=== PATIENT | female | born 1965 | race Caucasian/White ===

== ENCOUNTER 2017-01-20 16:55 | Emergency (ER) | payer OTHER ==
[~2017-01-20] VITALS: Ht 162.6 cm; Wt 68.9 kg
[2017-01-20 20:36] VITALS: BP 125/85
== END 2017-01-20 20:36 | disposition home or self-care (01) ==
LOC: ED 16:55
DX: L03.012 Cellulitis of left finger (principal); M25.561 Pain in right knee; J45.909 Unspecified asthma, uncomplicated; Z88.2 Allergy status to sulfonamides

== ENCOUNTER 2017-12-30 17:35 | Emergency (ER) | payer OTHER ==
[~2017-12-30] VITALS: Ht 162.6 cm; Wt 71.7 kg
[2017-12-30 17:42] VITALS: Ht 162.6 cm; Wt 71.7 kg
[2017-12-30 19:14] VITALS: BP 142/79
== END 2017-12-30 19:14 | disposition home or self-care (01) ==
LOC: ED 17:35
DX: S13.4XXA Sprain of ligaments of cervical spine, initial encounter (principal); S53.402A Unspecified sprain of left elbow, initial encounter; S20.212A Contusion of left front wall of thorax, initial encounter; M41.9 Scoliosis, unspecified; J45.909 Unspecified asthma, uncomplicated; Z90.710 Acquired absence of both cervix and uterus; V49.9XXA Car occupant (driver) (passenger) injured in unspecified traffic accident, initial encounter; Y93.84 Activity, sleeping; Y92.89 Other specified places as the place of occurrence of the external cause; Y99.8 Other external cause status

== ENCOUNTER 2018-05-18 12:12 | Emergency (ER) | payer OTHER ==
[~2018-05-18] VITALS: Ht 160 cm; Wt 71.7 kg
[2018-05-18 12:21] VITALS: Ht 160 cm; Wt 71.7 kg
[2018-05-18 14:05] LABS: CALCIUM 8.9 mg/dL (8.5-10.1); CARBON DIOXIDE 31.7 mmol/L (21-32); CHLORIDE SERUM 104 mmol/L (98-107); CREATININE SERUM 0.6 mg/dL (0.6-1.0); GFR1 > 60 mL/min; GLUCOSE SERUM 95 mg/dL (74-106); POTASSIUM SERUM 3.7 mmol/L (3.5-5.1); SODIUM SERUM 139 mmol/L (136-145)
[2018-05-18 14:10] LABS: ALBUMIN 4.3 g/dL (3.4-5.0); ALKALINE PHOSPHATASE 97 U/L (46-116); ALT/SGPT 31 U/L (14-59); AST/SGOT 17 U/L (15-37); BILIRUBIN TOTAL 0.67 mg/dL (0.20-1.00); LIPASE 151 IU/L (73-393)
[2018-05-18 14:13] LABS: BASOPHIL % 0.8 % (0-2); PLATELET COUNT 279 x10^3mcL (130-400); RED CELL DISTRIBUTION WIDTH 12.5 % (11.5-14.5)
[2018-05-18 14:15] LABS: TOTAL PROTEIN, SERUM 8.3 g/dL (6.4-8.2)
[2018-05-18 15:15] VITALS: BP 124/74
== END 2018-05-18 15:15 | disposition home or self-care (01) ==
LOC: ED 12:12
PROVIDERS: Emergency Medicine
DX: N39.0 Urinary tract infection, site not specified (principal); J45.909 Unspecified asthma, uncomplicated; Z90.710 Acquired absence of both cervix and uterus
CPT/HCPCS: 36415; J1885

== ENCOUNTER 2018-10-17 15:56 | Emergency (ER) | payer OTHER ==
[~2018-10-17] VITALS: Ht 160 cm; Wt 71.7 kg
[2018-10-17 16:06] VITALS: Ht 160 cm; Wt 71.7 kg
[2018-10-17 16:38] VITALS: BP 151/72
== END 2018-10-17 17:18 | disposition home or self-care (01) ==
LOC: ED 15:56
DX: L29.9 Pruritus, unspecified (principal); T63.481A Toxic effect of venom of other arthropod, accidental (unintentional), initial encounter; J45.909 Unspecified asthma, uncomplicated; Y92.89 Other specified places as the place of occurrence of the external cause; Z90.710 Acquired absence of both cervix and uterus; Z98.890 Other specified postprocedural states

== ENCOUNTER 2019-05-02 15:35 | Emergency (ER) | payer OTHER ==
[~2019-05-02] VITALS: Ht 160 cm; Wt 68.0 kg
[2019-05-02 15:39] VITALS: Ht 160 cm; Wt 68.0 kg
[2019-05-02 16:25] LABS: BASOPHIL % 0.5 % (0-2); PLATELET COUNT 253 x10^3mcL (130-400); RED CELL DISTRIBUTION WIDTH 12.7 % (11.5-14.5)
[2019-05-02 16:38] LABS: CALCIUM 8.8 mg/dL (8.5-10.1); CARBON DIOXIDE 29.7 mmol/L (21-32); CHLORIDE SERUM 107 mmol/L (98-107); CREATININE SERUM 0.7 mg/dL (0.6-1.0); GFR1 > 60 mL/min; GLUCOSE SERUM 109 mg/dL (74-106); POTASSIUM SERUM 3.8 mmol/L (3.5-5.1); SODIUM SERUM 144 mmol/L (136-145)
[2019-05-02 16:42] LABS: ALBUMIN 4.1 g/dL (3.4-5.0); ALKALINE PHOSPHATASE 87 U/L (46-116); ALT/SGPT 17 U/L (14-59); AST/SGOT 16 U/L (15-37); TOTAL PROTEIN, SERUM 7.1 g/dL (6.4-8.2)
[2019-05-02 16:56] VITALS: BP 123/80
== END 2019-05-02 19:04 | disposition home or self-care (01) ==
LOC: ED 15:35
PROVIDERS: Emergency Medicine
DX: N20.0 Calculus of kidney (principal); J45.909 Unspecified asthma, uncomplicated; Z98.890 Other specified postprocedural states; Z88.2 Allergy status to sulfonamides
CPT/HCPCS: 36415

== ENCOUNTER 2019-05-05 12:15 | Emergency (ER) | payer OTHER ==
[~2019-05-05] VITALS: Ht 165.1 cm; Wt 68.0 kg
[2019-05-05 12:17] VITALS: Ht 165.1 cm; Wt 68.0 kg
[2019-05-05 13:35] LABS: BASOPHIL % 1.1 % (0-2); PLATELET COUNT 230 x10^3mcL (130-400); RED CELL DISTRIBUTION WIDTH 12.7 % (11.5-14.5)
[2019-05-05 13:55] LABS: CALCIUM 8.8 mg/dL (8.5-10.1); CARBON DIOXIDE 27.7 mmol/L (21-32); CHLORIDE SERUM 107 mmol/L (98-107); CREATININE SERUM 0.5 mg/dL (0.6-1.0); GFR1 > 60 mL/min; GLUCOSE SERUM 83 mg/dL (74-106); SODIUM SERUM 143 mmol/L (136-145)
[2019-05-05 13:59] LABS: ALBUMIN 4.2 g/dL (3.4-5.0); ALKALINE PHOSPHATASE 85 U/L (46-116); ALT/SGPT 16 U/L (14-59); AST/SGOT 15 U/L (15-37); BILIRUBIN TOTAL 0.57 mg/dL (0.20-1.00); LIPASE 104 IU/L (73-393); TOTAL PROTEIN, SERUM 7.2 g/dL (6.4-8.2)
[2019-05-05 15:25] VITALS: BP 144/81
== END 2019-05-05 15:26 | disposition home or self-care (01) ==
LOC: ED 12:15
PROVIDERS: Emergency Medicine
DX: R10.31 Right lower quadrant pain (principal); J45.909 Unspecified asthma, uncomplicated; Z90.710 Acquired absence of both cervix and uterus; Z98.890 Other specified postprocedural states; Z88.2 Allergy status to sulfonamides
CPT/HCPCS: 36415; J1885; Q0092

== ENCOUNTER 2019-06-29 12:22 | Emergency (ER) | payer OTHER ==
[~2019-06-29] VITALS: Ht 160 cm; Wt 67.6 kg
[2019-06-29 12:28] VITALS: Ht 160 cm; Wt 67.6 kg
[2019-06-29 15:02] VITALS: BP 143/81
== END 2019-06-29 15:02 | disposition home or self-care (01) ==
LOC: ED 12:22
DX: M94.0 Chondrocostal junction syndrome [Tietze] (principal); J45.909 Unspecified asthma, uncomplicated; Z88.2 Allergy status to sulfonamides; Z98.890 Other specified postprocedural states
CPT/HCPCS: Q0092

== ENCOUNTER 2019-07-01 12:28 | Emergency (ER) | payer OTHER ==
[~2019-07-01] VITALS: Ht 160 cm; Wt 67.6 kg
[2019-07-01 12:40] VITALS: Ht 160 cm; Wt 67.6 kg
[2019-07-01 13:35] VITALS: BP 116/74
== END 2019-07-01 13:35 | disposition home or self-care (01) ==
LOC: ED 12:28
DX: M94.0 Chondrocostal junction syndrome [Tietze] (principal); G89.29 Other chronic pain; M25.552 Pain in left hip; J45.909 Unspecified asthma, uncomplicated; Z76.0 Encounter for issue of repeat prescription; Z88.2 Allergy status to sulfonamides; Z98.890 Other specified postprocedural states

== ENCOUNTER 2019-07-11 12:33 | Emergency (ER) | payer OTHER ==
[~2019-07-11] VITALS: Ht 160 cm; Wt 65.8 kg
[2019-07-11 12:35] VITALS: Ht 160 cm; Wt 65.8 kg
[2019-07-11 16:48] VITALS: BP 115/87
== END 2019-07-11 16:48 | disposition home or self-care (01) ==
LOC: ED 12:33
DX: M25.551 Pain in right hip (principal); G89.29 Other chronic pain; M85.80 Other specified disorders of bone density and structure, unspecified site; R30.0 Dysuria; J45.909 Unspecified asthma, uncomplicated; Z90.710 Acquired absence of both cervix and uterus; Z98.890 Other specified postprocedural states; Z88.2 Allergy status to sulfonamides
CPT/HCPCS: Q0092

== ENCOUNTER 2020-03-18 10:10 | Emergency (ER) | payer OTHER ==
[~2020-03-18] VITALS: Ht 160 cm; Wt 74.8 kg
[2020-03-18 10:19] VITALS: Ht 160 cm; Wt 74.8 kg
[2020-03-18 12:06] VITALS: BP 146/82
== END 2020-03-18 12:06 | disposition home or self-care (01) ==
LOC: ED 10:10
DX: T84.84XA Pain due to internal orthopedic prosthetic devices, implants and grafts, initial encounter (principal); M54.5 Low back pain; J45.909 Unspecified asthma, uncomplicated; Z90.710 Acquired absence of both cervix and uterus; Z98.890 Other specified postprocedural states; Z88.2 Allergy status to sulfonamides
CPT/HCPCS: J1885